=== PATIENT | male | born 1995 | race Caucasian/White ===

== ENCOUNTER 2017-11-10 11:55 | Emergency (ER) | payer BC, OTHER ==
[2017-11-10 11:59] VITALS: BP 117/68; PULSE 70; RESP 18; TEMP 99
--- NOTE | 2017-11-10 12:26 | ED ---
General Adult HPI - General Chief complaint: Extremity Injury, Lower Stated complaint: Foot Injury Time Seen by Provider: 11/10/17 12:03 Source: patient, family, RN notes reviewed Mode of arrival: wheelchair Limitations: no limitations - History of Present Illness Initial comments: 22-year-old male presents to the emergency department for a chief complaint of left foot pain times one day. Patient states that yesterday he was stepping down the last stair when he tripped and fell. Patient states he fell onto his hands and knees but may have twisted his left ankle. Patient states most the pain is in the lateral side of the foot. Patient denies injuring his hands or wrists or knees. Patient denies hitting his head or losing consciousness. Patient denies any lightheadedness precipitating the fall. Patient states he has been applying ice and elevating it which has helped with the swelling. Patient and mother would like to make sure it is not broken as he is leaving for college in 2 weeks. Patient has no other complaints at this time including shortness of breath, chest pain, abdominal pain, nausea or vomiting, headache, or visual changes. - Related Data Home Medications Medication Instructions Recorded Confirmed Omeprazole [PriLOSEC] 20 mg PO AC-BID 11/13/13 11/10/17 Allergies Allergy/AdvReac Type Severity Reaction Status Date / Time No Known Allergies Allergy Verified 11/10/17 11:57 Review of Systems ROS Statement: Those systems with pertinent positive or pertinent negative responses have been documented in the HPI. ROS Other: All systems not noted in ROS Statement are negative. Past Medical History Past Medical History: GERD/Reflux History of Any Multi-Drug Resistant Organisms: None Reported Past Surgical History: No Surgical Hx Reported Additional Past Anesthesia/Blood Transfusion Reaction / Comment(s): father has difficulty coming out of anesthesia Past Psychological History: No Psychological Hx Reported Smoking Status: Never smoker Past Alcohol Use History: None Reported Past Drug Use History: None Reported General Exam Limitations: no limitations General appearance: alert, in no apparent distress Head exam: Present: atraumatic, normocephalic, normal inspection Eye exam: Present: normal appearance. Absent: scleral icterus, conjunctival injection ENT exam: Present: normal exam, mucous membranes moist Neck exam: Present: normal inspection, full ROM. Absent: tenderness, meningismus, lymphadenopathy Respiratory exam: Present: normal lung sounds bilaterally. Absent: respiratory distress, wheezes, rales, rhonchi, stridor Cardiovascular Exam: Present: regular rate, normal rhythm, normal heart sounds. Absent: systolic murmur, diastolic murmur, rubs, gallop, clicks Extremities exam: Present: tenderness (Patient has tenderness over the fifth metatarsal as well as the dorsal aspect of the left foot. No tenderness noted in the medial or lateral malleolus of the left lower extremity), normal capillary refill (Capillary refill less than 2 seconds of the left foot. Pedal pulse 2+.), joint swelling (Patient does have moderate swelling noted of the lateral dorsal left foot. No swelling in the ankle.), other (Sensation intact in the left lower extremity). Absent: full ROM (Patient has about 10 degrees dorsiflexion and 30 plantar flexion of the left ankle. Patient able to move left toes. Patient able to move upper extremities and right lower extremity without difficulty.), calf tenderness Course Vital Signs 11/10/17 11:57 Temperature 99 F Pulse Rate 70 Respiratory 18 Rate Blood Pressure 117/68 O2 Sat by Pulse 97 Oximetry Medical Decision Making - Medical Decision Making 22-year-old male presents to the emergency department for a chief complaint of left foot pain 2 days. Patient fell down the stairs yesterday and injured his foot. Patient states it is painful to walk on. Patient does have tenderness along the fifth metatarsal as well as the dorsal left foot. Patient is some limited range of motion of the ankle but states this is due to the pain in his foot rather than in his ankle. No tenderness in the ankle. Neurovascular intact. Patient was given ice in the emergency department states he has been icing and elevating it which has helped with the swelling. X-ray of the left foot and ankle read as showing o fracture, dislocation, or other acute osseous lesion. However upon review with Dr. Galvan there does appear to be a left fifth metatarsal styloid fracture without displacement. Patient was wrapped with an Bran wrap and given a walking boot. Weightbearing as tolerated. He is to follow up with primary care or orthopedics in one to 2 days. He is to return to the emergency department if he has any worsening symptoms. Disposition Clinical Impression: Foot pain, left, Foot fracture, left Disposition: HOME SELF-CARE Condition: Good Instructions: Foot Fracture in Adults (ED), RICE Therapy (ED) Additional Instructions: Please rice, ice, and elevate the left foot. Take Motrin and Tylenol for pain. Use Bran wrap to apply pressure to the foot. Use walking boot and weight- bearing on foot as tolerated. Follow up with primary care or orthopedics in one to 2 days. Return to the emergency department if you have any worsening symptoms. Is patient prescribed a controlled substance at d/c from ED?: No Referrals: Louis Prado DO [Primary Care Provider] - 1-2 days Sanjay Haider MD [STAFF PHYSICIAN] - 1-2 days Time of Disposition: 12:41
--- NOTE | 2017-11-10 12:30 | XR ---
EXAMINATION TYPE: XR ankle complete LT , 3 VIEWS DATE OF EXAM ORDERED: 11/10/2017 HISTORY: Pain. COMPARISON: None. FINDINGS: No fracture, dislocation or ankle joint effusion is seen. IMPRESSION: NO ACUTE OSSEOUS LESION.
--- NOTE | 2017-11-10 12:31 | XR ---
EXAMINATION TYPE: XR foot complete LT , 3 VIEWS DATE OF EXAM ORDERED: 11/10/2017 HISTORY: Pain. COMPARISON: None. FINDINGS: No fracture, dislocation or other acute osseous lesion is seen. IMPRESSION: NO ACUTE OSSEOUS LESION.
== END 2017-11-10 13:25 | disposition home or self-care (01) ==
LOC: EC 11:55
DX: S92.355A Nondisplaced fracture of fifth metatarsal bone, left foot, initial encounter for closed fracture (principal); K21.9 Gastro-esophageal reflux disease without esophagitis; Z79.899 Other long term (current) drug therapy; W10.9XXA Fall (on) (from) unspecified stairs and steps, initial encounter; Y93.01 Activity, walking, marching and hiking
CPT/HCPCS: 99283

== ENCOUNTER 2018-08-10 18:57 | Emergency (ER) | payer BC, OTHER ==
--- NOTE | 2018-08-10 19:39 | ED ---
Headache HPI - General Chief Complaint: Headache Stated Complaint: Headache Time Seen by Provider: 08/10/18 19:05 Mode of arrival: ambulatory Limitations: no limitations - History of Present Illness Initial Comments: 22-year-old male with no past medical history presenting for headache. Patient states he does not get headaches frequently he states he is last headache was about 6 months prior and he had to headache medicine and it went away. Patient states around 4 PM today he gradual onset of headache he states at first it was like an ice pick sharp and stabbing mostly of the frontal region and behind the left eye. Patient states he took headache medication which seemed to alleviate to a dull aching headache. However the headache persisted. He denies any increase in intensity however patient began to feel nauseous and had about 5 episodes of emesis. Patient denies any recent head trauma or injury to the diplopia or visual changes or loss of vision denies any numbness tingling or loss sensation of the upper or lower extremities he denies any dizziness or zhao ges in gait he denies any memory changes speech changes or facial asymmetry. Patient states his only symptom is headache and nausea. She denies neck stiffness, fever chills or night sweats. Patient denies any upper respiratory symptoms. Remaining ROS (-). - Related Data Home Medications Medication Instructions Recorded Confirmed Omeprazole [PriLOSEC] 20 mg PO AC-BID 11/13/13 11/10/17 Allergies Allergy/AdvReac Type Severity Reaction Status Date / Time No Known Allergies Allergy Verified 08/10/18 19:02 Review of Systems ROS Statement: Those systems with pertinent positive or pertinent negative responses have been documented in the HPI. ROS Other: All systems not noted in ROS Statement are negative. Past Medical History Past Medical History: GERD/Reflux History of Any Multi-Drug Resistant Organisms: None Reported Past Surgical History: No Surgical Hx Reported Additional Past Anesthesia/Blood Transfusion Reaction / Comment(s): father has difficulty coming out of anesthesia Past Psychological History: No Psychological Hx Reported Smoking Status: Never smoker Past Alcohol Use History: None Reported Past Drug Use History: None Reported General Exam - General Exam Comments Initial Comments: General: The patient is awake and alert, in no distress, and does not appear acutely ill. Eye: +3 mm pupils are equal, round and reactive to light, extra-ocular movements are intact. No nystagmus. There is normal conjunctiva bilaterally. No signs of icterus. Ears, nose, mouth and throat: There are moist mucous membranes and no oral lesions. Neck: The neck is supple, there is no tenderness or JVD. Cardiovascular: There is a regular rate and rhythm. No murmur, rub or gallop is appreciated. Respiratory: Lungs are clear to auscultation, respirations are non-labored, breath sounds are equal. No wheezes, stridor, rales, or rhonchi. Gastrointestinal: [Soft, non-distended, non-tender abdomen without masses or organomegaly noted. There is no rebound or guarding present. No CVA tenderness. Bowel sounds are unremarkable.] Musculoskeletal: Normal ROM, no tenderness. Strength 5/5. Sensation intact. Pulses equal bilaterally 2+. Neurological: A&O x 3. CN II-XII intact, memory intact to immediately, intermediate and roasterman recall. Able to follow simple verbal. Able to name a common object (pen). High quality, labial (pa) and lingual (la) speech. Low quality posterior pharynx/larynx (ga) voice sounds. Able to express general knowledge (days in a week). No hemineglect or inattention noted. Finger agnosia (-) and spatially oriented (identified L index finger touched R shoulder with L index finger). Light touch and temperature sensation present over the face, chest, abdomen, back, UE bilaterally, and LE bilaterally. Able to localize point during point localization b/l and extinction. No visible bulk atrophy, hypertrophy, fasciculations, or myoclonus of the UE or LE b/l. Full PROM in UE and LE b/l. Bilateral muscle strength 5/5 for the following muscles: deltoid, biceps, triceps, brachioradialis, wrist extensors/flexor, hip flexor, hip abductors/adductors, hamstrings, quadriceps, feet dorsiflexors/plantar flexors. Finger to nose, finger to the examiners finger, and heel to garcia coordinated and accurate b/l. Coordinated and even demonstration of hand flip, finger to thumb, and toe tap b/l Gait is coordinated and even in stride with tandem. Maintains balance with monopedal stance. (-) Romberg. (-) pronator drift. No nuchal rigidity. (-) Brudzinskis and Kernig signs. Skin: Skin is warm and dry and no rashes or lesions are noted. Psychiatric: Cooperative, appropriate mood & affect, normal judgment. Limitations: no limitations Course Vital Signs 08/10/18 08/10/18 08/10/18 19:00 20:45 21:24 Temperature 98.2 F 98.3 F Pulse Rate 59 L 69 61 Respiratory 16 18 16 Rate Blood Pressure 114/72 129/71 117/67 O2 Sat by Pulse 100 97 98 Oximetry Medical Decision Making - Medical Decision Making 22-year-old male presenting for headache. Patient states it began gradually however he states he has not had a headache like this before he states he usually does not get headaches. Patient onset of 4 PM less than 4 hours before arrival in the emergency department. There are no focal neurological deficits. He states that he characteristic is now dull aching improvement in symptoms. Patient is provided Toradol after imaging studies were obtained there is no evidence of aneurysm on CT angiography. CT without contrast no acute intracranial process. This time feel patient headache is of benign origin. Upon reevaluation patient states his headache is gone. He is ready to go home. Patient is to follow-up with primary care provider return parameters were discussed at length the patient. I discussed the case of type provider Dr. Galvan who is agreeable with this plan. pt discharged appearing well. - Lab Data Result diagrams: 08/10/18 20:06 08/10/18 20:06 Lab Results 08/10/18 08/10/18 Range/Units 20:06 20:06 WBC 12.9 H (4.0-11.0) k/uL RBC 5.55 (4.30-5.90) m/uL Hgb 15.9 (13.0-17.5) gm/dL Hct 48.3 (39.0-53.0) % MCV 87.0 (80.0-100.0) fL MCH 28.6 (25.0-35.0) pg MCHC 32.9 (31.0-37.0) g/dL RDW 12.3 (11.5-15.5) % Plt Count 231 (150-450) k/uL Neutrophils % 86 % Lymphocytes % 8 % Monocytes % 3 % Eosinophils % 1 % Basophils % 0 % Neutrophils # 11.1 H (1.3-7.7) k/uL Lymphocytes # 1.1 (1.0-4.8) k/uL Monocytes # 0.4 (0-1.0) k/uL Eosinophils # 0.2 (0-0.7) k/uL Basophils # 0.1 (0-0.2) k/uL Sodium 136 L (137-145) mmol/L Potassium 4.3 (3.5-5.1) mmol/L Chloride 98 (98-107) mmol/L Carbon Dioxide 26 (22-30) mmol/L Anion Gap 12 mmol/L BUN 15 (9-20) mg/dL Creatinine 0.82 (0.66-1.25) mg/dL Est GFR (CKD-EPI)AfAm >90 (>60 ml/min/1.73 sqM) Est GFR (CKD-EPI)NonAf >90 (>60 ml/min/1.73 sqM) Glucose 95 (74-99) mg/dL Calcium 10.0 (8.4-10.2) mg/dL Total Bilirubin 0.8 (0.2-1.3) mg/dL AST 52 (17-59) U/L ALT 65 (21-72) U/L Alkaline Phosphatase 101 (38-126) U/L Total Protein 7.7 (6.3-8.2) g/dL Albumin 4.9 (3.5-5.0) g/dL Disposition Clinical Impression: Headache Disposition: HOME SELF-CARE Condition: Good Instructions (If sedation given, give patient instructions): Acute Headache (ED) Additional Instructions: Please use medication as discussed. Please follow-up with family doctor in the next 2 days. Please return to emergency room if the symptoms increase or worsen or for any other concerns. Is patient prescribed a controlled substance at d/c from ED?: No Referrals: Louis Prado DO [Primary Care Provider] - 1-2 days Time of Disposition: 21:18
--- NOTE | 2018-08-10 20:08 | CT ---
EXAMINATION TYPE: CT brain wo con DATE OF EXAM: 08/10/2018 COMPARISON: NONE HISTORY: Headache today. CT DLP: 1109.4 mGycm. Automated Exposure Control for Dose Reduction was Utilized. TECHNIQUE: CT scan of the head is performed without contrast. FINDINGS: There is no acute intracranial hemorrhage, mass effect, or midline shift identified . No suspicious extra-axial fluid collection. There is a 1.4 cm left maxillary mucosal retention cyst. Re maining paranasal sinuses and mastoid air cells are well aerated. Globes appear symmetric. The ventri cles and sulci are within normal limits in size. IMPRESSION: No acute intracranial hemorrhage, mass effect, or midline shift is seen. Left maxillary mucosal retention cyst measuring 1.4 cm.
[2018-08-10 20:16] LABS: Basophils # (A) 0.1 k/uL (0-0.2); Basophils % (A) 0 %; Eosinophils # (A) 0.2 k/uL (0-0.7); Eosinophils % (A) 1 %; HCT 48.3 % (39.0-53.0); HGB 15.9 gm/dL (13.0-17.5); Lymphocytes # (A) 1.1 k/uL (1.0-4.8); Lymphocytes % (A) 8 %; MCH 28.6 pg (25.0-35.0); MCHC 32.9 g/dL (31.0-37.0); Mean Platelet Volume 7.3; Monocytes # (A) 0.4 k/uL (0-1.0); Monocytes % (A) 3 %; Neutrophils # (A) 11.1 k/uL (1.3-7.7); Neutrophils % (A) 86 %; Platelet Count 231 k/uL (150-450); RBC 5.55 m/uL (4.30-5.90); RDW 12.3 % (11.5-15.5); WBC 12.9 k/uL (4.0-11.0)
[2018-08-10] MEDS ORDERED: KETOROLAC 30 MG/ML 1 ML VIAL IVP STA (20:25)
[2018-08-10] MEDS ORDERED: ONDANSETRON 4 MG/2 ML VIAL IVP STA (20:26)
[2018-08-10] MEDS ORDERED: diphenhydrAMINE 50 MG/ML 1 ML VIAL IVP STA (20:26)
[2018-08-10 20:32] LABS: ALT 65 U/L (21-72); AST 52 U/L (17-59); Albumin 4.9 g/dL (3.5-5.0); Alkaline Phosphatase 101 U/L (38-126); Anion Gap 12 mmol/L; Blood Urea Nitrogen 15 mg/dL (9-20); Carbon Dioxide 26 mmol/L (22-30); Chloride 98 mmol/L (98-107); Glucose 95 mg/dL (74-99); Potassium 4.3 mmol/L (3.5-5.1); Sodium 136 mmol/L (137-145); Total Bilirubin 0.8 mg/dL (0.2-1.3); Total Protein 7.7 g/dL (6.3-8.2)
--- NOTE | 2018-08-10 20:44 | CT ---
EXAMINATION TYPE: CT angio COW [place] DATE OF EXAM: 08/10/2018 8:32 PM COMPARISON: CT brain of the same date HISTORY: Headache today. CT DLP: 665.4 mGycm Automated exposure control for dose reduction was used. TECHNIQUE: Standard CTA of the [place] was performed per department protocol with IV Contrast, patient injected with 100 mL of Isovue 370. FINDINGS: Anterior and posterior circulation are unremarkable and patent. 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 Vertebral arteries are codominant. Basilar artery is unremarkable. No sizable aneurysmal outpouching, hemodynamically significant steno sis or focal occlusion is seen. No evidence of major intracranial artery dissection or arterial venou s reformations. IMPRESSION: NO EVIDENCE OF HEMODYNAMICALLY SIGNIFICANT STENOSIS, ANEURYSM OR DISSECTION OF THE MAJOR INTRACRANIAL VASCULATURE.
[2018-08-10 21:25] VITALS: BP 117/67; PULSE 61; RESP 16; TEMP 98.3
== END 2018-08-10 21:24 | disposition home or self-care (01) ==
LOC: EC 18:57
DX: R51 Headache (principal); R11.2 Nausea with vomiting, unspecified; K21.9 Gastro-esophageal reflux disease without esophagitis; Z79.899 Other long term (current) drug therapy
CPT/HCPCS: 36415; 80053; 85025; 70496; 70450; 99284; 96374; 96375 ×2; J1200; J2405; J1885; Q9967

== ENCOUNTER → 2019-10-23 | Outpatient (CLI) | payer OTHER ==
--- NOTE | 2019-10-23 14:10 | XR ---
EXAMINATION TYPE: XR thoracic spine complete DATE OF EXAM: 10/23/2019 COMPARISON: NONE HISTORY: Pain TECHNIQUE: 3 views submitted FINDINGS: Alignment is anatomic. There is no compression deformities. Pedicles intact. Disc spaces preserved. IMPRESSION: 1. No acute abnormality. If there is concern for disc herniation correlate with MRI
--- NOTE | 2019-10-23 14:11 | XR ---
EXAMINATION TYPE: XR cervical spine comp DATE OF EXAM: 10/23/2019 COMPARISON: NONE HISTORY: Pain TECHNIQUE: Four views are submitted. FINDINGS: The odontoid is intact. There are no compression deformities. The prevertebral soft tissue structur es are within normal limits. Lung apices clear. Neural foramina appear to be patent. IMPRESSION: 1. No acute process.
== END | disposition home or self-care (01) ==
LOC: RADXRMAIN 13:33
PROVIDERS: ATTEND Nurse Practitioner Family
DX: M54.6 Pain in thoracic spine (principal); M54.2 Cervicalgia
CPT/HCPCS: 72050; 72072